=== PATIENT | female | born 1985 | race Two or more races ===

== ENCOUNTER 2022-02-07 21:42 | Emergency (ER) | payer SELFPAY ==
[~2022-02-07] VITALS: Ht 172.7 cm; Wt 75.0 kg
[2022-02-07 21:52] VITALS: BP 132/85
== END 2022-02-07 22:45 ==
LOC: ER 21:43
DX: T19.2XXA Foreign body in vulva and vagina, initial encounter (principal); X58.XXXA Exposure to other specified factors, initial encounter; Y93.89 Activity, other specified; Y92.89 Other specified places as the place of occurrence of the external cause; Y99.8 Other external cause status
CPT/HCPCS: 72170; 99283